=== PATIENT | female | born 1995 | race Caucasian/White ===

== ENCOUNTER → 2020-07-29 | Outpatient (CLI) | payer OTHER ==
--- NOTE | 2020-07-29 16:25 | KCIC ---
DG VIDEO SWALLOW STUDY History:Reason: Dysphagia, feels like food gets stuck. Comparison studies: None. Technique: Esophagram was performed utilizing double contrast upright examination, single contrast pr one examination, and cine evaluation of cervical esophageal swallow function. Findings: Barium swallow was performed without difficulty. Esophageal peristalsis and motility were n ormal. No mucosal abnormalities. Small hiatal hernia. No gastroesophageal reflux. No esophageal diver ticulum. Fundus of the stomach was unremarkable. Barium tablet passed promptly to the stomach. Fluoroscopic time: 3 minutes 29 seconds Fluoroscopic images: 17 images IMPRESSION: 1. Small hiatal hernia. Electronically signed by: Federico Mathews DO (07/29/2020 4:23 PM) [id number]
== END ==
LOC: KCIC 14:47 → EDBD 15:30
PROVIDERS: ATTEND Family Medicine
DX: K44.9 Diaphragmatic hernia without obstruction or gangrene (principal)
CPT/HCPCS: 74220